=== PATIENT | female | born 2000 | race Caucasian/White ===

== ENCOUNTER 2024-06-18 16:44 | Emergency (ER) | payer BC ==
[~2024-06-18] VITALS: Ht 160 cm; Wt 51.6 kg
[2024-06-18] MEDS ORDERED: KEPPRA1000 MG PO (17:10)
[2024-06-18 17:40] LABS: BASO # 0.01 K/mm3 (0.02-0.10); EOS # 0.04 K/mm3 (0.04-0.40); EOS % 0.5 % (1.0-5.0); HEMATOCRIT 39.4 % (37.0-47.0); HEMOGLOBIN 13.4 g/dL (12.5-16.0); LYMPH# 1.08 K/mm3 (1.50-4.00); MEAN CELL VOLUME 88 fl (78-100); MEAN CORPUSCULAR HEMOGLOBIN 30 pg (27-31); MEAN CORPUSCULAR HGB CONC 34 g/dL (33-37); MEAN PLATELET VOLUME 9.6 fl (7.4-10.4); MONO # 0.56 K/mm3 (0.20-0.80); NEU # 6.03 K/mm3 (1.40-6.50); PLATELET COUNT 171 K/mm3 (130-400); RED BLOOD COUNT 4.47 M/mm3 (4.10-5.30); RED CELL DISTRIBUTION WIDTH 11.7 % (11.5-14.5); WHITE BLOOD COUNT 7.7 K/mm3 (4.8-10.8)
[2024-06-18] MEDS ORDERED: NS 1,000 ML IV SCH (17:45)
[2024-06-18 17:51] LABS: TOTAL PROTEIN 6.4 g/dL (6.4-8.3)
[2024-06-18 17:53] LABS: TOTAL BILIRUBIN 0.4 mg/dL (0.2-1.2)
[2024-06-18 17:57] LABS: MAGNESIUM 2.08 mg/dL (1.60-2.60)
[2024-06-18] MEDS ORDERED: Ketorolac 30 MG/ML VIAL IV ONE (18:15)
[2024-06-18 18:43] LABS: URINE APPEARANCE CLEAR (CLEAR); URINE COLOR YELLOW (YELLOW)
[2024-06-18 18:48] LABS: PH-URINE 6.5 (5.0 - 8.0); URINE BILIRUBIN NEGATIVE (NEGATIVE); URINE BLOOD NEGATIVE (NEGATIVE); URINE GLUCOSE NEGATIVE (NEGATIVE); URINE KETONE NEGATIVE (NEGATIVE); URINE LEUKOCYTE ESTERASE NEGATIVE (NEGATIVE); URINE NITRATE NEGATIVE (NEGATIVE); URINE PROTEIN(semi-quant) NEGATIVE (NEGATIVE); URINE WBC 0-1 /hpf (0-3)
[2024-06-18] MEDS ORDERED: levETIRAcetam 500 MG TAB PO ONE (19:00)
[2024-06-18 19:05] VITALS: BP 124/80
== END 2024-06-18 19:05 | disposition home or self-care (01) ==
LOC: ED 16:44
PROVIDERS: Family Medicine
DX: G40.909 Epilepsy, unspecified, not intractable, without status epilepticus (principal)
CPT/HCPCS: J1885; J7030